=== PATIENT | female | born 1960 | race Caucasian/White ===

== ENCOUNTER 2017-01-18 18:41 | Emergency (ER) | payer OTHER ==
[~2017-01-18] VITALS: Ht 175.3 cm; Wt 76.4 kg
[~2017-01-18 18:41] MED LIST: ASPI-973 PO; ATEN25TA PO; CHOL200047 PO; MULT-1018 PO; OMEG500C PO; SIMV20TA4 PO
[2017-01-18 18:54] VITALS: BP 114/81; PULSE 53; RESP 18; O2SAT 99
[2017-01-18 20:10] LABS: BASOPHILS % (AUTO) 0.4 % (0-3); EOSINOPHILS % (AUTO) 1.6 % (0-5); Mean Corpuscular Hemoglobin 29.6 pg (27.0-35.0); Mean Corpuscular Volume 86.8 fL (81-100); NEUTROPHILS % (AUTO) 60.1 % (40-74); Platelet Count 245 bil/L (150-400)
[2017-01-18 21:08] LABS: TROPONIN T < 0.010 ug/L (0.0-0.011)
--- NOTE | 2017-01-18 21:21 | ED.REPORT ---
HPI-Chest Pain 40 and Over Date of Service Jan 18, 2017 ED Provider: Clayton Zheng MD Patient is a 56 year old female with a history of paroxysmal atrial fibrillation who presents to the ED complaining of chest palpitations that began at 6am this morning. Patient states that she first noticed an irregular heart rate after she woke up morning, taking a dose of 25mg Atenolol at 7am. The patient laid in bed and rested all day. Her symptoms persisted and she took an additional 25mg dose at 3pm. Patient states that her heart rate dropped at that time but she then became dizzy. Patient states that she had several episodes of atrial fibrillation last month, which only lasted several hours and improved with Atenolol. She reports associated chest heaviness and shortness of breath. Patient has been seen in the ED twice for this complaint, both times resolving with medication. Her sterile proc tech is Dr. Love. Nursing Notes Stated Complaint: SOB/SHOULDER AND BACK PAIN Chief Complaint: Dysrhythmia/Cardiac Nursing Notes Reviewed: Yes Allergies: Coded Allergies: cephalexin (Unverified Allergy, Severe, Rash, 01/18/17) niacin (Verified Allergy, Unknown, 01/18/17) Uncoded Allergies: WALNUTS (Allergy, Unknown, 12/16/15) Scheduled Aspirin (Aspirin) 81 Mg Tablet 81 MG PO DAILY Atenolol (Atenolol) 25 Mg Tablet 25 MG PO DAILY Cholecalciferol (Vitamin D3) (Vitamin D3) 2,000 Unit Capsule 2,000 UNIT PO DAILY Multivitamin (Multi Vitamin Daily) 1 Each Tablet 1 EACH PO DAILY [place]-3 Fatty Acids (Fish Oil) 500 Mg Capsule. 500 MG PO DAILY Simvastatin (Simvastatin) Unknown Strength Tablet Unknown Dose PO HS General Time Seen by : 21:05 Chief Complaint Other (chest palpitations) Hx Obtained From: Patient Arrived By: Walk-in Sudden in Onset?: Yes Onset Occurred: 13 - 16 hours ago Symptom Duration: Since onset Location: : Chest left: Chest right Quality: Heaviness Severity: Current: Mild Severity: Maximum: Mild Recent Healthcare: No recent doctor visit, No recent hospitalization Similar Sx Previous: Yes Past Medical History Past Medical History Hx of multifocal atrial tachycardia Atrial Fibrillation Reports: Hyperlipidemia Past Surgical History ovarian cyst removal Reports: Tubal ligation Family History thyroid disease Reports: Coronary artery disease, Hypertension Smoking History Current Every Day Smoker Social History Alcohol Use: 1-3 per day Drug Use: Denies drug use Other Social History: Good social support, Local resident Ambulatory Status Independent Review of Systems Respiratory: Reports: Shortness of breath Cardiovascular: Reports: Chest pain (heaviness), Palpitations Neurologic: Reports: Dizziness, Lightheaded Complete sys rev & neg: except as marked. Physical Exam Initial Vital Signs Vital Signs (First) Date Time Temp Pulse Resp B/P Pulse Ox O2 Delivery O2 Flow Rate FiO2 01/18/17 18:54 36.0 53 18 114/81 99 Room Air Initial VS: Reviewed, Vital signs abnormal Head / Eyes: Atraumatic, Normocephalic, PERRL ENT: Conjunctiva normal, No scleral icterus Extremities: No swelling Skin: Warm, Dry, No cyanosis Neurologic: Alert, Oriented, Nonfocal Psychiatric: Mood/affect normal, Behavior normal, Normal thought content General/Constitutional: Awake, Alert, No acute distress Respiratory / Chest: Breath sounds NL, Breath sounds = bilat, No respiratory distress, No rales, No rhonchi, No wheezing Cardiovascular: No gallop, No murmurs, No rubs Heart Rate / Rhythm: Positive: Irreg irregular rhythm, Tachycardia Abdomen: Soft, Non-tender Neck: Supple, No JVD Lower Extremity / Pelvis / MS: No swelling, No deformity, No edema Interpretation & Diagnostics Lab Results Interpretation Result Diagram: 01/18/17195501/18/171955 Test 01/18/17 19:56 White Blood Count 7.5th/mm3 (3.8-10.1) Red Blood Count 5.00mil/mm3 (3.90-5.20) Hemoglobin 14.8g/dL (12.0-15.6) Hematocrit 43.4% (35.0-46.0) Mean Corpuscular Volume 86.8fL (81-100) Mean Corpuscular Hemoglobin 29.6pg (27.0-35.0) Mean Corpuscular Hemoglobin Concent 34.1% (32.0-37.0) Red Cell Distribution Width 14.1% (12.3-15.4) Platelet Count 245bil/L (150-400) Neutrophils (%) (Auto) 60.1% (40-74) Lymphocytes (%) (Auto) 31.8% (14-46) Monocytes (%) (Auto) 6.0% (4-12) Eosinophils (%) (Auto) 1.6% (0-5) Basophils (%) (Auto) 0.4% (0-3) Sodium Level 139mEq/L (134-144) Potassium Level 3.9mEq/L (3.5-5.2) Chloride Level 101mEq/L (97-108) Carbon Dioxide Level 21mmol/L (18-29) Blood Urea Nitrogen 9mg/dL (6-24) Creatinine 0.89mg/dL (0.57-1.00) Estimat Glomerular Filtration Rate 93mL/min (>59) Glucose Level 115mg/dL (60-99) Calcium Level 9.0mg/dL (8.5-10.1) Magnesium Level 2.0mg/dL (1.6-2.6) Total Bilirubin 0.5mg/dL (0.0-1.2) Aspartate Amino Transf (AST/SGOT) 15U/L (0-50) Alanine Aminotransferase (ALT/SGPT) 13U/L (0-32) Alkaline Phosphatase 68U/L (25-150) Troponin T < 0.010ug/L (0.0-0.011) Total Protein 6.7g/dL (6.4-8.4) Albumin 4.1g/dL (3.4-5.0) Thyroid Stimulating Hormone (TSH) 3.110uIU/mL (0.450-4.500) Free Thyroxine 1.33ng/dL (0.82-1.77) Hold [place] Top Tube Received (Received) Lab values outside NL range: no clinical significance. ECG Interpretation ECG Interpretation: Atrial fibrillation, Rate 132 Time: 21:15 Interpreted by: ED physician Normal ECG Interpretation: No acute ischemic changes, No change from prior ECGs ECG Interpretation: Normal Sinus Rhythm, Rate 64 Time: 03:23 Interpreted by: ED physician X-Ray Chest Interpretation Chest Xray Interpretation: IMPRESSION: No acute disease Dictated by: Kamron Kowalski M.D. on 01/18/2017 at 21:30 Approved by: Kamron Kowalski M.D. on 01/18/2017 at 21:31 View: Portable Interpretation / Wet Read by: Interpret - Radiologist Re-Eval/Medical Decision Med Decision/Clinical Course 56-year-old female who has been having intermittent episodes of atrial fibrillation over the last year or so. She has had 3 ER visits, and the other episodes of been self-limiting. She presents now with rapid irregular rate of 150 260 consistent with A. fib. There are no ischemic changes. Her labs are all normal. She was initially given metoprolol with some slowing of her rate. Her records were reviewed and on Dr. Love's recommendation on a previous visit she had been given amiodarone 150 mg with success. This medication was repeated on this visit and approximately 2 hours later she did have conversion back to normal sinus rhythm. Repeat EKG was normal. She will be discharged home to follow up with Dr. Love to discuss antiarrhythmic medications and need for anti-coagulation. Source of Hx: Old records Time of Eval: 01:07 Re-Evaluation/Progress Note: Rechecked the patient. Her heart rate is now reduced, but she continues to be in atrial fibrillation. Time of Eval: 02:59 Patient Status: Condition improved Re-Evaluation/Progress Note: Patient has converted back into a normal sinus rhythm. Patient understands and agrees with the plan to be discharged home. Discharge instructions and follow-up discussed. All questions were addressed. Return to the ED warnings given. Counseled Regarding: Diagnosis, Lab results, Need for follow-up, When/why to return to ED Discharge & Departure Primary Impression: Paroxysmal atrial fibrillation Disposition: Home Discharge Condition All VS Reviewed: Yes Condition: Stable Patient Instructions: Atrial Fibrillation (ED) Additional Instructions: You were given metoprolol to slow your rate. You were then given amiodarone, and your atrial fibrillation converted back to a normal sinus rhythm. Labs are all normal. Talk to Dr. Love about whether you need to be on a blood thinner. Meanwhile , increase your dose of aspirin 262 mg. Referrals: Britany Santamaria MD (PCP) Scribe Attestation Portions of this note were transcribed by Zo Maddox. I, Dr. Zheng personally performed the history, physical exam and medical decision-making; I reviewed and confirmed the accuracy of the information in the transcribed note. Signed by: Stephen Maldonado, 01/19/2017 0333 copies to: Britany Santamaria MD, Howard L MD Jan 18, 2017 21:21 Zo Maddox Jan 18, 2017 21:28
--- NOTE | 2017-01-18 21:33 | DRSVH ---
PROCEDURE: X-RAY CHEST ONE VIEW, PORTABLE ([id number]) INDICATIONS: dysrhythmia TECHNIQUE: One view of the chest was acquired. COMPARISON: None. FINDINGS: Surgical changes and devices: None. Lungs and pleura: No pleural effusions or pneumothorax. Lungs are clear. Mediastinum: Mediastinal contours appear normal. Heart size is normal. Bones and chest wall: No suspicious bony lesions. Overlying soft tissues appear unremarkable. IMPRESSION: No acute disease Dictated by: Kamron Kowalski M.D. on 01/18/2017 at 21:30 Approved by: Kamron Kowalski M.D. on 01/18/2017 at 21:31
[2017-01-18] MEDS ORDERED: Amiodarone 150 mg/100 mL D5W 150 MG in IV Premix 1 EACH IV ONE (21:35)
[2017-01-18] MEDS: MeTOProlol 1 mg/mL 5 mL Inj IVPUSH SCH ×2 (21:46→21:52)
[2017-01-18 23:00] VITALS: BP 92/57; PULSE 87; RESP 15; O2SAT 95
[2017-01-19 03:28] VITALS: BP 99/62; PULSE 59; RESP 12; O2SAT 96
== END 2017-01-19 03:27 | disposition home or self-care (01) ==
LOC: SED 18:41
DX: I48.0 Paroxysmal atrial fibrillation (principal); E78.5 Hyperlipidemia, unspecified; F17.200 Nicotine dependence, unspecified, uncomplicated; Z79.82 Long term (current) use of aspirin; Z88.1 Allergy status to other antibiotic agents; Z88.8 Allergy status to other drugs, medicaments and biological substances
CPT/HCPCS: 36415; 71010; 80053; 82948; 83735; 84439; 84443; 84484; 85025; 93005; 96365; 96375; 99285; J0282

== ENCOUNTER 2017-03-27 11:33 | Observation (INO) | payer OTHER ==
[2017-03-27] VITALS (7 sets, daily range): BP systolic 108–121; BP diastolic 67–85; PULSE 62–119; RESP 11–16; O2SAT 95–98
[~2017-03-27] VITALS: Ht 175.3 cm; Wt 77.2 kg
[2017-03-27] MEDS ORDERED: Diltiazem 5 mg/mL 5 mL Inj IVPUSH ONE (11:55)
[2017-03-27] MEDS ORDERED: MeTOProlol 1 mg/mL 5 mL Inj IVPUSH ONE ×2 (12:00→13:40)
[2017-03-27 12:06] LABS: BASOPHILS % (AUTO) 0.7 % (0-3); EOSINOPHILS % (AUTO) 1.6 % (0-5); MONOCYTES % (AUTO) 6.3 % (4-12); Mean Corpuscular Hemoglobin 29.4 pg (27.0-35.0); NEUTROPHILS % (AUTO) 62.4 % (40-74); Platelet Count 243 bil/L (150-400)
[2017-03-27 12:09] LABS: INR 1.02 ratio
[2017-03-27 12:17] LABS: TROPONIN T 0.01 ug/L (0.0-0.011)
--- NOTE | 2017-03-27 12:19 | DRSVH ---
PROCEDURE: X-RAY CHEST ONE VIEW, PORTABLE ([id number]) INDICATIONS: CHF TECHNIQUE: One view of the chest was acquired. COMPARISON: None. FINDINGS: Surgical changes and devices: None. Lungs and pleura: No pleural effusions or pneumothorax. Lungs are clear. Mediastinum: Mediastinal contours appear normal. Heart size is normal. Bones and chest wall: No suspicious bony lesions. Overlying soft tissues appear unremarkable. IMPRESSION: No acute cardiopulmonary findings. Dictated by: Janna Claudio M.D. on 03/27/2017 at 12:17 Approved by: Janna Claudio M.D. on 03/27/2017 at 12:18
--- NOTE | 2017-03-27 12:27 | ED.REPORT ---
HPI-Chest Pain 40 and Over Date of Service March 27, 2017 ED Provider: Gavin Braswell MD History of Present Illness: The patient does not have chest pain, this template is use considers no palpitations dysrhythmia template in the system Patient is a 56 year old female with a history of atrial fibrillation who presents to the ED via EMS due to atrial fibrillation onset 0700 this morning. Associated symptoms include palpitations, intermittent dizziness, shaking and burning into her back, buttocks and into her legs. Patient denies chest pain or diaphoresis. She reports that she took 25mg of Atenolol and 3, 81mg ASA after 0700 and began to feel improved after laying down but around 1000 began to feel symptomatic again. The patient states that she went into atrial fibrillation a week ago so she took Atenol and her symptoms resolved after a day. She reports that she only takes Atenolol when she is symptomatic because it makes her dizzy and lowers her rate down into the 50's. Nursing Notes Stated Complaint: RAPID HEART RATE Chief Complaint: Dysrhythmia/Cardiac Nursing Notes Reviewed: Yes Allergies: Coded Allergies: cephalexin (Unverified Allergy, Severe, Rash, 01/18/17) niacin (Verified Allergy, Unknown, 01/18/17) Uncoded Allergies: BEES (Allergy, Intermediate, 03/27/17) WALNUTS (Allergy, Unknown, 12/16/15) Scheduled Aspirin (Aspirin) 81 Mg Tablet 81 MG PO DAILY Atenolol (Atenolol) 25 Mg Tablet 25 MG PO DAILY Cholecalciferol (Vitamin D3) (Vitamin D3) 2,000 Unit Capsule 2,000 UNIT PO DAILY Multivitamin (Multi Vitamin Daily) 1 Each Tablet 1 EACH PO DAILY [place]-3 Fatty Acids (Fish Oil) 500 Mg Capsule.dr 500 MG PO DAILY Simvastatin (Simvastatin) Unknown Strength Tablet Unknown Dose PO HS General Time Seen by MD: 11:39 Chief Complaint Other (atrial fibrillation) Hx Obtained From: Patient Arrived By: Ambulance Sudden in Onset?: Yes Onset Occurred: 1 - 4 hours ago Symptom Duration: Since onset Associated with: Reports: Dizziness Recent Healthcare: No recent hospitalization, Recent doctor visit Similar Sx Previous: Yes Past Medical History Past Medical History Hx of multifocal atrial tachycardia Atrial Fibrillation Reports: Hyperlipidemia Past Surgical History ovarian cyst removal Reports: Tubal ligation Family History thyroid disease Reports: Coronary artery disease, Hypertension Smoking History Current Every Day Smoker Social History Alcohol Use: 1-3 per day Drug Use: Denies drug use Other Social History: Good social support, Local resident Ambulatory Status Independent Review of Systems Respiratory: Denies: Non-productive cough, Shortness of breath Cardiovascular: Reports: Palpitations, Denies: Chest pain Musculoskeletal: Reports: Back pain, Extremity pain (legs) Skin: Denies Diaphoresis Neurologic: Reports: Dizziness, Shaking Complete sys rev & neg: except as marked. Physical Exam Initial Vital Signs Vital Signs (First) Date Time Temp Pulse Resp B/P Pulse Ox O2 Delivery O2 Flow Rate FiO2 03/27/17 11:43 36.5 119 16 111/85 Nasal Cannula 03/27/17 13:41 97 Initial VS: Reviewed, Vital signs abnormal General/Constitutional: Awake, Alert Behavior: Positive: Anxious Respiratory / Chest: Atraumatic, Breath sounds NL, Breath sounds = bilat, No respiratory distress Heart Rate / Rhythm: Positive: Irregular rhythm, Tachycardia Abdomen: Atraumatic, Soft, Non-tender Skin: Atraumatic, Color NL, No rash, Warm, Dry Neurologic: Oriented X3, Speech NL, No motor deficits, No sensory deficits Psychiatric: Affect NL, Mood NL Head / Eyes: Atraumatic, Normocephalic, PERRL, EOMI Interpretation & Diagnostics Lab Results Interpretation Result Diagram: 03/27/17 1200 03/27/17 1200 Test 03/27/17 12:00 White Blood Count 7.3th/mm3 (3.8-10.1) Red Blood Count 4.94mil/mm3 (3.90-5.20) Hemoglobin 14.5g/dL (12.0-15.6) Hematocrit 42.5% (35.0-46.0) Mean Corpuscular Volume 86.0fL (81-100) Mean Corpuscular Hemoglobin 29.4pg (27.0-35.0) Mean Corpuscular Hemoglobin Concent 34.1% (32.0-37.0) Red Cell Distribution Width 14.4% (12.3-15.4) Platelet Count 243bil/L (150-400) Neutrophils (%) (Auto) 62.4% (40-74) Lymphocytes (%) (Auto) 28.9% (14-46) Monocytes (%) (Auto) 6.3% (4-12) Eosinophils (%) (Auto) 1.6% (0-5) Basophils (%) (Auto) 0.7% (0-3) Prothrombin Time 10.9sec (8.1-12.5) Prothromb Time International Ratio 1.02ratio Sodium Level 141mEq/L (134-144) Potassium Level 4.1mEq/L (3.5-5.2) Chloride Level 103mEq/L (97-108) Carbon Dioxide Level 20mmol/L (18-29) Blood Urea Nitrogen 10mg/dL (6-24) Creatinine 0.77mg/dL (0.57-1.00) Estimat Glomerular Filtration Rate 110mL/min (>59) Glucose Level 140mg/dL (60-99) Calcium Level 9.2mg/dL (8.5-10.1) Magnesium Level 1.9mg/dL (1.6-2.6) Total Bilirubin 0.4mg/dL (0.0-1.2) Aspartate Amino Transf (AST/SGOT) 19U/L (0-50) Alanine Aminotransferase (ALT/SGPT) 13U/L (0-32) Alkaline Phosphatase 69U/L (25-150) Troponin T 0.010ug/L (0.0-0.011) Total Protein 6.7g/dL (6.4-8.4) Albumin 4.2g/dL (3.4-5.0) Lab Results Interpretation: CBC normal CMP normal Troponin #1 negative ECG Interpretation ECG Interpretation: Atrial fibrillation with RVR, rate 125 new compared to 01/19/17 no acute ischemic changes Time: 11:46 Interpreted by: ED physician X-Ray Chest Interpretation Chest Xray Interpretation: IMPRESSION: No acute cardiopulmonary findings. Dictated by: Janna Cluadio M.D. on 03/27/2017 at 12:17 Approved by: Janna Claudio M.D. on 03/27/2017 at 12:18 View: Portable, 1 view Interpretation / Wet Read by: Interpret - Radiologist Procedures Electrical Cardioversion Electrical Cardioversion: 120 Joules Time: 13:25 Procedure Performed by: ED physician Indication: Atrial fibrillation Consent / Setup / Site Prep: Consent from patient Procedural Sedation/Analgesia: Sedation: Propofol Procedure Successful: No Post-Procedure Rhythm: Normal sinus rhythm, Persistent atrial fib Post-Procedure / Complications: No complications, Tolerated procedure well, Patient stable Re-Eval/Medical Decision Med Decision/Clinical Course This is a 56-year-old female who has no history of coronary artery disease, or structural heart disease, but he does have a history of paroxysmal atrial fibrillation. She has come close to requiring electrical cardioversion previously, but reports she had a spontaneous conversion after receiving the propofol-she has also had a chemical cardioversion in recent months with the amiodarone. She has been given atenolol, but reports she cannot tolerate it as a causes dizziness and symptomatic bradycardia so she does not take it routinely. She reports a week ago she had a brief episode of palpitations which she did take a dose of atenolol with rapid resolution, and then is very clear that she had sudden onset today of palpitations and atrial fibrillation- this is also associated with severe dizziness. She went ahead and took a dose of atenolol and waited several hours to see if it had affect, but continued worsening dizziness to the point that she had to call EMS. She denies chest pain shortness of breath. She was found in a true fibrillation with rapid ventricular response and was brought to the emergency department. She has has ongoing rapid ventricular response at a rate in the 120s, but is also has marginal hypotension with a blood pressure in the 90s although she is not profoundly symptomatic the moment she reports slight dizziness. She has no diaphoresis, no chest pain-posture she reports a very transient heaviness intermittently. The patient's physical exam was otherwise normal, she clinically appears well and is mentating well without other overt signs of hypoperfusion. Given the marginal blood pressure limits the options with medications, given the patient describes significant side effects and symptoms with medications, I discussed the case with cardiology who recommended going ahead and pursuing DC cardioversion. The patient seems an excellent candidate, patient is a clear clinical history of less than 24 hour onset. Form consent was obtained, and her procedural sedation was performed with propofol, and a DC cardioversion with a syncyronized biphasic 120 J shock was performed with successful conversion to a sinus rhythm. Unfortunately, the patient reverted to atrial fibrillation even prior to the propofol completely wearing off. The patient otherwise tolerated the procedure without any difficulty. With the recurrence of the atrial fibrillation, and the blood pressures remaining on the low end of normal, the case was again discussed with cardiology -with the patient's poor tolerance of medications, the low blood pressures, the plan is admission. The patient had previously been on Xarelto, and at the recommendation of morgue attendant this is being resumed. The patient's blood pressures around 100 systolic post recurrence of atrial fibrillation, she received some gentle fluids, and is receiving some additional metoprolol for rate control. The patient is being admitted to the hospitalist service for ongoing management along with cardiology consultation. Source of Hx: Old records Time of Eval: 12:42 Re-Evaluation/Progress Note: Discussed plan for cardioversion. Patient understands and agrees to the procedure Time of Eval: 13:36 Re-Evaluation/Progress Note: Rechecked patient. Cardioversion was unsuccessful, patient is back in tachycardia. Discussed plan for admit. The patient understands and agrees to admit. All questions were addressed. Consultation #1: Referral / Consult Name: Casi Tobar MD Consulted With: Cardiology Call Returned at: 12:11 Shelving Supervisor: Will see patient, Agrees with eval Note: Consult with Dr. Tobar, morgue attendant, who recommends the patient receive DC cardioversion and follow up with her morgue attendant after discharge. Consultation #2: Referral / Consult Name: Casi Tobar MD Consulted With: Cardiology Call Returned at: 13:33 Note: Consult with Dr. Tobar, morgue attendant, who recommends the patient be admitted after an unsuccessful cardioversion. Consultation #3: Referral / Consult Name: Alanis Tejeda MD Consulted With: Hospitalist Call Returned at: 14:37 Shelving Supervisor: Agrees with eval, Agrees with plan, Accepts admit Differential Diagnosis: Positive: Dysrhythmia (Atrial Fibrillation (refractory) ), Negative: Acute coronary syndrome, Acute myocardial infarct, Anxiety disorder , Aortic dissection, Gun shot wound chest, Pneumomediastinum, Pneumonia, Pneumothorax, Pulmonary edema, Pulmonary embolism Counseled Regarding: Diagnosis, Lab results, Need for admission Discharge & Departure Primary Impression: Atrial fibrillation with rapid ventricular response Disposition: ADMITTED TO HOSPITAL Discharge Condition All VS Reviewed: Yes Condition: Stable Referrals: Britany Santamaria MD (PCP) Crit Care Except Billable Proc Time Spent: 30-74 minutes Services Performed: Patient management by me, Time spent at bedside, Reviewing test results, Reviewing imaging, Discussing patient care, Documentation in record, Other Scribe Attestation Portions of this note were transcribed by Awa Michel. I, Dr. Braswell personally performed the history, physical exam and medical decision-making; I reviewed and confirmed the accuracy of the information in the transcribed note. Signed by: Stephen Guajardo, 03/27/17 and 1335 copies to: Britany Santamaria MD, Matthew F MD March 27, 2017 12:27 Chrystal Michel March 27, 2017 12:44
[2017-03-27 12:28] LABS: Magnesium 1.9 mg/dL (1.6-2.6)
[2017-03-27] MEDS ORDERED: Propofol 10 mg/mL 20 mL Inj IVPUSH ONE (12:55)
[2017-03-27] MEDS ORDERED: 0.9% Sodium Chloride 500 ML IV ONE (13:40)
[2017-03-27] MEDS ORDERED: MeTOProlol XL 25 mg ER24 Tablet PO SCH (14:50)
--- NOTE | 2017-03-27 15:21 | CONS ---
[address] [address] CONSULTATION REPORT PATIENT: TERRY POE : 1960 MR#: [id number] ADMIT: 03/27/2017 JOB ID: [id number] DATE OF SERVICE: 03/27/2017 CARDIOLOGY CONSULTATION: CHIEF COMPLAINT: Palpitations. HISTORY OF PRESENT ILLNESS: The patient is a delightful 56-year-old woman with a longstanding paroxysmal atrial fibrillation. Her management is complicated by difficulty tolerating her beta allen antiarrhythmic. She is supposed to be taking atenolol 25 mg once a day. Unfortunately, she reports that she takes it only as needed and sometimes taking this medication is complicated by severe dizziness and weakness. Be that as it may, she was doing fine until about 7 o'clock this morning. She reported palpitation, dizziness, body shaking and burning down to her back, buttocks and legs. The patient denies chest pain, no diaphoresis. In the emergency department, she is found to have atrial fibrillation with rapid ventricular response. The patient was quite sure about the onset of symptoms and, therefore, DC cardioversion was delivered. Normal sinus was restored but as patient began waking up AFib unfortunately came back with rapid ventricular response. She has salvos of AFib for about 10 seconds each followed by 10 seconds of normal sinus rhythm. PAST MEDICAL HISTORY: 1. Paroxysmal atrial fibrillation diagnosed in November 2015, in the emergency department. She actually converted to normal sinus rhythm spontaneously at that time. 2. Possible triggers for AFib include drinking alcohol and stress. 3. Hyperlipidemia. 4. Raynaud syndrome. PAST SURGICAL HISTORY: 1. Tonsillectomy and adenoidectomy. 2. Skin cancer surgery. 3. Bilateral tubal ligation. FAMILY HISTORY: Father with coronary artery disease. Mother with multiple sclerosis. Maternal aunt with idiopathic cardiomyopathy. SOCIAL HISTORY: The patient unfortunately smokes. She has been trying to quit. ALLERGIES: To KEFLEX, NIACIN. HOME MEDICATIONS: 1. Aspirin 81 mg daily (of note, patient used to be on Xarelto 20 mg daily and tolerated that well but it was recently stopped). 2. Simvastatin 20 mg daily. 3. Various supplements and [id number] products including calcium, antacid, Prilosec OTC, multivitamin. REVIEW OF SYSTEMS: The patient reports significant anxiety about her palpitations and arrhythmias. She does report significant feelings of shame about her smoking. Otherwise 10 point review of systems is negative. PHYSICAL EXAMINATION: Vital signs: Temperature 36.5, blood pressure 120/68, pulse 93 up to 118 beats per minute. She is saturating 97% on room air. Very pleasant, well-nourished woman, in no apparent distress. Eyes: No scleral icterus. Neck: Supple. No lymphadenopathy. No carotid bruits. Heart: Irregularly irregular. No murmurs. Lungs are clear anteriorly. Abdomen: Soft, positive bowel sounds. No hepatosplenomegaly. Extremities: Warm, well perfused. No clubbing, cyanosis or edema. Skin: No rashes or lesions. The patient has very fair complexion. Neurologic examination is nonfocal. Psych examination: The patient has tearful affect. 1. Cardiovascular review: Echo January 06, 2016 showed normal LV size, wall thickness, wall motion and systolic function. EF of 60%-65%. Stage 1 diastolic dysfunction. Mild left atrial enlargement. No significant valvular abnormalities. Mild ascending aorta enlargement. 2. Stress test was most recently performed in 2006. At that time the patient had normal graded exercise stress test. She walked on the treadmill for 12 minutes and 30 seconds with functional aerobic impairment index of -40%. The treadmill was read as normal. LABORATORY AND RADIOLOGY REVIEW: CBC is normal. Creatinine 0.7. Potassium 4.1, magnesium 1.9. Transaminases are normal. Troponin is negative. ASSESSMENT AND PLAN: This is a 56-year-old woman with what appears to be paroxysmal AFib that is difficult to control due to her intolerance of antiarrhythmic medication that cause dizziness. Her blood pressure is borderline. I recommend them trying Toprol-XL and we can try 25 mg daily and monitor her closely. I recommend Xarelto for stroke prevention. Her CHADS 2 VASc score is only 1 with points for hypertension. However, she just underwent DC cardioversion. So she actually has transiently increased risk of AFib. I recommend checking her thyroid labs to determine the triggers for AFib for this patient. I recommend admitting her and monitoring her closely since she articulates to me that she has palpitations at home and sometimes very slow pulse associated with dizziness. I wonder whether she has tachybrady syndrome and perhaps she would benefit from ablation or pacemaker implant. Thank you very much for the opportunity to participate in her care.
--- NOTE | 2017-03-27 15:53 | PCM.HPMED ---
Subjective Date of Service March 27, 2017 Primary Provider: Admitting Physician: Primary Care Physician: Britany Santamaria MD Attending Physician: Chief Complaint: Palpitation History of Present Illness: 56yo F w/ paroxysmal Afib, active smoker, Raynaud's on bilateral hands p/w palpitation starting this morning. pt stated that since 7am this morning, pt started having palpitations, shaking, no sweating or chest pain, pt took 1atenolol and 81mg [id number], pt continued to feel like she would pass out, called ambulance. Of note, pt had similar symptomatic episode of afib multiple times in the past, first diagnosed , pt was started on Xarelto, Atenolol, followed by , initially though to have multifocal atrial tachycardia, Xarelto was switched to aspirin. Later, it felt to be afib with more recurrent symptomatic episode, given low CHASVASC: 1 aspirin was continued. rate controling with BB. TTE showed mildly dilated LA but no ASD. normal LV function. TFTs were WNL. Last visit was with . Since then pt has had intermittent episode of palpitations, without SOB,chest pain, dizziness. But pt was aware when it started, checking pulses by herself, took atenolol only when she felt as she noticed that her rate dropped below 50s when she took. had 2more ED visit since then. Last visit was . pt was on amiodorone, chemically converted to sinus, discharged with increase aspirin [id number]. ED VS BP 111/85, 119, 16, afebrile, noted to have afib with RVR, as per , pt was cardioverted to sinus then back to afib, BP remained low 100s after cardioversion. pt received Lopressor 2.5 mg IV push, propofol, Xarelto 20mg, Cardizem 15mg, pt ivp. pt was admitted to hospital with persistent afib with RVR. Cardiology on board. During the interview, pt seemed in sinus [id number], looked comfortable, denied chest pain, SOB, c/o chronic dry cough for several months, no leg swelling, wt gain, ET-unlimited. admitted that she is anxious with palpitations, used to take anti-depressant by her PCP, not any more. denied sputum, diarrhea, dysuria , sick contacts, travel. Review of Systems: Pertinent positives as noted in history of present illness. All other systems were reviewed and are negative Allergies Coded Allergies: cephalexin (Unverified Allergy, Severe, Rash, 01/18/17) niacin (Verified Allergy, Unknown, 01/18/17) Uncoded Allergies: BEES (Allergy, Intermediate, 03/27/17) WALNUTS (Allergy, Unknown, 12/16/15) Home Medications Scheduled Aspirin (Aspirin) 81 Mg Tablet 81 MG PO DAILY Atenolol (Atenolol) 25 Mg Tablet 25 MG PO DAILY NEEDED Cholecalciferol (Vitamin D3) (Vitamin D3) 2,000 Unit Capsule 2,000 UNIT PO DAILY Multivitamin (Multi Vitamin Daily) 1 Each Tablet 1 EACH PO DAILY [place]-3 Fatty Acids (Fish Oil) 500 Mg Capsule.dr 500 MG PO DAILY Simvastatin (Simvastatin) Unknown Strength Tablet Unknown Dose PO HS PMH PMH Hx of multifocal atrial tachycardia Atrial Fibrillation Reports: Hyperlipidemia, used to be on simvastatin, but was told not to take it by PCP based on risks Past Surgical History ovarian cyst removal Reports: Tubal ligation Family History father had aortic aneurysm, of aortic dissection mother had HTN, HLD, MS Smoking History Current Every Day Smoker Social History Hx Alcohol Use: Yes (occasionally) Hx Substance Use: No Hx Tobacco Use: Yes Smoking Status: Current Every Day Smoker (10cig/daily for 3-4yrs ago, ) Exam Vital Signs Vital Sign - Last Date Time Temp Pulse Resp B/P Pulse Ox O2 Delivery O2 Flow Rate FiO2 03/27/17 14:05 93 16 120/68 97 Room Air 03/27/17 11:43 36.5 Exam NAD, comfortably laying down on the bed no JVD, MMM, no LAD RRR, nl s1, s2 no mrg CTAB, no w,c S,ND,NT,normoactive BS+ warm, no edema, pulses 2/2 Lab and Diagnostics Result Diagram: 03/27/17 1200 03/27/17 1200 X-Rays, CTs and MRIs PROCEDURE: X-RAY CHEST ONE VIEW, PORTABLE ([id number]) INDICATIONS: CHF TECHNIQUE: One view of the chest was acquired. COMPARISON: None. FINDINGS: Surgical changes and devices: None. Lungs and pleura: No pleural effusions or pneumothorax. Lungs are clear. Mediastinum: Mediastinal contours appear normal. Heart size is normal. Bones and chest wall: No suspicious bony lesions. Overlying soft tissues appear unremarkable. IMPRESSION: No acute cardiopulmonary findings. Dictated by: Janna Claudio M.D. on 03/27/2017 at 12:17 Approved by: Janna Claudio M.D. on 03/27/2017 at 12:18 12-lead ECG ST, with multiple PVCs Assessment & Plan Acute, active paroxysmal afib, POA, admitted with RVR, s/p failed DCCV in ED, but now back in sinus rhythms, HD stable, reported S/E with low dose atenolol-dizziness. No signs of infection/dehydration which can precipitate afib RVR. -appreciate further input from -metoprololXR 25mg qd for rate control, monitor on telemetry, pt did tolerate metoprolol iv well in the past -check TFT again, TTE, lipid panel, a1c -start AC with Xarelto, given risks of stroke post-cardioversion per -probably pt has underling anxiety d/o, consider low dose benzo if pt becomes agitated Chronic, stable Raynaud's, encouraged smoking cessation, no w/u been done per patient, needs Rheumatologic eval in OP if continues HLD, diet controlled active smoking, counseled on cessation, pt is motivated, will do nicotine patch lowest dose. Dispo: Patient is admitted under observation status with expectation that she will be discharged within 24-48 hours, diet: Heart healthy dvt ppx:LMWH today, systemic AC with Xarelto Full code Time spent 65 minutes Alanis Tejeda MD March 27, 2017 14:43
[2017-03-27] MEDS ORDERED: ATEN25TA PO (16:13)
[2017-03-28 00:49] VITALS: BP 114/70; PULSE 64; RESP 18; O2SAT 96
[2017-03-28 04:51] VITALS: BP 121/72; PULSE 55; RESP 16; O2SAT 98
[2017-03-28 05:38] VITALS: PULSE 55
[2017-03-28] MEDS ORDERED: MeTOProlol XL 25 mg ER24 Tablet PO SCH (08:30)
[2017-03-28] MEDS ORDERED: NIC7 TOPICAL (09:06)
[2017-03-28] MEDS ORDERED: RIVA10TA PO (09:06)
[2017-03-28] MEDS ORDERED: METO25TA6 PO (09:06)
[2017-03-28 09:22] VITALS: BP 117/75; PULSE 67; RESP 18; O2SAT 97
[2017-03-28 10:22] VITALS: PULSE 71
--- NOTE | 2017-03-28 12:30 | PCM.DIMED ---
Discharge Instructions Date of Service March 28, 2017 Dates of Hospitalization March 27, 2017 at 14:45 Discharge Diagnosis Discharge Diagnosis Atrial fibrillation with rapid ventricular response Medication Instructions use nicotine patch as needed take Xarelto daily with evening meal take metoprolol 12.5mg twice a day, dosage can be adjusted in the clinic Diet Low fat, Low Sodium, Heart Healthy Activity No restrictions Call your provider Shortness of breath Patient Instructions Your hospitalized with known atrial fibrillation with rapid heartbeat, underwent Cardioversion, and rate is now controlled with new medicine. Please follow medicine instruction as we discussed and above Please follow up with your primary doctor and [facility] for further treatment Please note that you are strongly encouraged to stop smoking, use nicotine patch as needed Follow-up Provider: Britany Santamaria MD Follow-up with PCP in: 2 weeks Provider: Honorio Love MD Follow-up in: 4 weeks Alanis Tejeda MD March 28, 2017 12:30
--- NOTE | 2017-03-30 10:04 | PCM.DC.MED ---
Discharge Summary Date of Service March 28, 2017 Dates of Hospitalization Date of Hospital Admission March 27, 2017 at 14:45 Date of Discharge: March 28, 2017 Providers: Admitting Physician: Alanis Leone MD Primary Care Physician: Britany Santamaria MD Attending Physician: Alanis Leone MD Diagnosis at Time of Discharge Diagnosis at Time of Discharge Acute dx paroxysmal atrial fibrillation with rapid ventricular response Chronic dx Raynaud's, HLD, active smoking, Consultations Cardiology Procedures XRay, CTs & MRIs PROCEDURE: X-RAY CHEST ONE VIEW, PORTABLE ([id number]) INDICATIONS: CHF TECHNIQUE: One view of the chest was acquired. COMPARISON: None. FINDINGS: Surgical changes and devices: None. Lungs and pleura: No pleural effusions or pneumothorax. Lungs are clear. Mediastinum: Mediastinal contours appear normal. Heart size is normal. Bones and chest wall: No suspicious bony lesions. Overlying soft tissues appear unremarkable. IMPRESSION: No acute cardiopulmonary findings. Dictated by: Janna Claudio M.D. on 03/27/2017 at 12:17 Approved by: Janna Claudio M.D. on 03/27/2017 at 12:[address], with multiple PVCs Brief History HPI obtained 03/27 56yo F w/ paroxysmal Afib, active smoker, Raynaud's on bilateral hands p/w palpitation starting this morning. pt stated that since 7am this morning, pt started having palpitations, shaking, no sweating or chest pain, pt took 1atenolol and 81mg [id number], pt continued to feel like she would pass out, called ambulance. Of note, pt had similar symptomatic episode of afib multiple times in the past, first diagnosed , pt was started on Xarelto, Atenolol, followed by , initially though to have multifocal atrial tachycardia, Xarelto was switched to aspirin. Later, it felt to be afib with more recurrent symptomatic episode, given low CHASVASC: 1 aspirin was continued. rate controling with BB. TTE showed mildly dilated LA but no ASD. normal LV function. TFTs were WNL. Last visit was with . Since then pt has had intermittent episode of palpitations, without SOB,chest pain, dizziness. But pt was aware when it started, checking pulses by herself, took atenolol only when she felt as she noticed that her rate dropped below 50s when she took. had 2more ED visit since then. Last visit was . pt was on amiodorone, chemically converted to sinus, discharged with increase aspirin [id number]. ED VS BP 111/85, 119, 16, afebrile, noted to have afib with RVR, as per , pt was cardioverted to sinus then back to afib, BP remained low 100s after cardioversion. pt received Lopressor 2.5 mg IV push, propofol, Xarelto 20mg, Cardizem 15mg, pt ivp. pt was admitted to hospital with persistent afib with RVR. Cardiology on board. During the interview, pt seemed in sinus [id number], looked comfortable, denied chest pain, SOB, c/o chronic dry cough for several months, no leg swelling, wt gain, ET-unlimited. admitted that she is anxious with palpitations, used to take anti-depressant by her PCP, not any more. denied sputum, diarrhea, dysuria , sick contacts, travel. Hospital Course Acute dx paroxysmal afib, POA, admitted with RVR, s/p failed DCCV in ED, back in sinus rhythms, remained in sinus. BP was stable. Cardiology consulted, Since pt reported S/E with low dose atenolol-dizziness. MetoprololXR 25mg tried , pt felt mild lightheadedness with [id number], dose changed to 12.5mg bid.Xarelto was started s/p DCCV to decrease stroke risk. There was no signs of infection/dehydration which can precipitate afib RVR. Plan was to continue Metoprolol current dosage, repeat TTE if needed, follow up with in the clinic. There was certainly anxiety component, associated with afib. Patient likely benefit from formal evaluation by Psychiatrist. Chronic dx Raynaud's, pt reported purplish fingers with acute temp changes. seemed not active on this hospitalization. pt was encouraged complete smoking cessation, Since no w/u been done per patient, pt likely needs Rheumatologic eval in OP if sx continues. HLD, diet controlled active smoking, counseled on cessation, pt is motivated, tried nicotine patch lowest dose, stable. Exam Vital Signs (Last) Date Time Temp Pulse Resp B/P Pulse Ox O2 Delivery O2 Flow Rate FiO2 03/28/17 10:22 71 03/28/17 09:22 37.2 18 117/75 97 Room Air Exam NAD, comfortably laying down on the bed no JVD, MMM, no LAD RRR, nl s1, s2 no mrg CTAB, no w,c S,ND,NT,normoactive BS+ warm, no edema, pulses 2/2 Test 03/27/17 12:00 03/27/17 14:58 03/27/17 14:59 White Blood Count 7.3th/mm3 (3.8-10.1) Red Blood Count 4.94mil/mm3 (3.90-5.20) Hemoglobin 14.5g/dL (12.0-15.6) Hematocrit 42.5% (35.0-46.0) Mean Corpuscular Volume 86.0fL (81-100) Mean Corpuscular Hemoglobin 29.4pg (27.0-35.0) Mean Corpuscular Hemoglobin Concent 34.1% (32.0-37.0) Red Cell Distribution Width 14.4% (12.3-15.4) Platelet Count 243bil/L (150-400) Neutrophils (%) (Auto) 62.4% (40-74) Lymphocytes (%) (Auto) 28.9% (14-46) Monocytes (%) (Auto) 6.3% (4-12) Eosinophils (%) (Auto) 1.6% (0-5) Basophils (%) (Auto) 0.7% (0-3) Prothrombin Time 10.9sec (8.1-12.5) Prothromb Time International Ratio 1.02ratio Sodium Level 141mEq/L (134-144) Potassium Level 4.1mEq/L (3.5-5.2) Chloride Level 103mEq/L (97-108) Carbon Dioxide Level 20mmol/L (18-29) Blood Urea Nitrogen 10mg/dL (6-24) Creatinine 0.77mg/dL (0.57-1.00) Estimat Glomerular Filtration Rate 110mL/min (>59) Glucose Level 140mg/dL (60-99) Calcium Level 9.2mg/dL (8.5-10.1) Magnesium Level 1.9mg/dL (1.6-2.6) Total Bilirubin 0.4mg/dL (0.0-1.2) Aspartate Amino Transf (AST/SGOT) 19U/L (0-50) Alanine Aminotransferase (ALT/SGPT) 13U/L (0-32) Alkaline Phosphatase 69U/L (25-150) Troponin T 0.010ug/L (0.0-0.011) Total Protein 6.7g/dL (6.4-8.4) Albumin 4.2g/dL (3.4-5.0) Triglycerides Level 155mg/dL (0-149) Cholesterol Level 238mg/dL (100-199) LDL Cholesterol, Calculated 147.000mg/dL (0-99) VLDL Cholesterol 31.000mg/dL HDL Cholesterol 60mg/dL (>39) Cholesterol/HDL Ratio 3.97 (0.0-4.4) Thyroid Stimulating Hormone (TSH) 1.160uIU/mL (0.450-4.500) Free Thyroxine 1.20ng/dL (0.82-1.77) Hemoglobin A1c 5.7% (4.8-5.6) Discharge Medications Discharge Medications Cholecalciferol (Vitamin D3) (Vitamin D3) 2,000 Unit Capsule 2,000 UNIT PO DAILY (Reported) Metoprolol Tartrate (Metoprolol Tartrate) 25 Mg Tablet 12.5 MG PO BID Prescribed by: ALANIS LEONE MD Multivitamin (Multi Vitamin Daily) 1 Each Tablet 1 EACH PO DAILY (Reported) Nicotine 7 mg/24 hr Patch (Nicotine 7 mg/24 hr Patch) 1 Each Patch.td24 1 PATCH TOPICAL DAILY Prescribed by: ALANIS LEONE MD [place]-3 Fatty Acids (Fish Oil) 500 Mg Capsule.dr 500 MG PO DAILY (Reported) Rivaroxaban (Xarelto) 10 Mg Tablet 20 MG PO DAILY@17 Prescribed by: ALANIS LEONE MD Additional med instructions use nicotine patch as needed take Xarelto daily with evening meal take metoprolol 12.5mg twice a day, dosage can be adjusted in the clinic Followup Plan Disposition: home Discharge Diet: Low fat, Low Sodium, Heart Healthy Discharge Activity: No restrictions Patient Instructions Your hospitalized with known atrial fibrillation with rapid heartbeat, underwent Cardioversion, and rate is now controlled with new medicine. Please follow medicine instruction as we discussed and above Please follow up with your primary doctor and [facility] for further treatment Please note that you are strongly encouraged to stop smoking, use nicotine patch as needed Follow-up Provider: Britany Santamaria MD Follow-up with PCP in: 2 weeks Provider: Honorio Love MD Follow-up in: 4 weeks Time spent 65min Alanis Leone MD March 30, 2017 10:04
== END 2017-03-28 13:15 | disposition home or self-care (01) ==
LOC: SED 11:33 → EDUNIT# 11:33 → EDBD 11:33 → MPC 14:45
PROVIDERS: ADMIT Internal Medicine; ATTEND Internal Medicine
DX: I48.0 Paroxysmal atrial fibrillation (principal); E78.5 Hyperlipidemia, unspecified; I73.00 Raynaud's syndrome without gangrene; Z79.82 Long term (current) use of aspirin; R42 Dizziness and giddiness; T44.7X5A Adverse effect of beta-adrenoreceptor antagonists, initial encounter; F17.210 Nicotine dependence, cigarettes, uncomplicated
CPT/HCPCS: 36415; 71010; 80053; 80061; 83036; 83735; 84439; 84443; 84484; 85025; 85610; 92960; 93005; 94799; 96374; 99291; G0378; J1650; J7040